=== PATIENT | female | born 1995 | race American Indian/Alaskan Native ===

== ENCOUNTER 2016-11-02 18:32 | Emergency (ER) | payer OTHER ==
--- NOTE | 2016-11-02 21:30 | XRay Report ---
FINAL REPORT EXAM: XR FOOT 3 RT HISTORY: right foot injury . Pain. COMPARISON: None available. FINDINGS: Three views of right foot obtained. There is an oblique nondisplaced fracture through the body of the 3rd metatarsal bone. Remaining bony structures are intact. Joint spaces are preserved. IMPRESSION: Oblique nondisplaced fracture extending through the 3rd metatarsal body. Posttraumatic injury.
--- NOTE | 2016-11-02 22:03 | Emergency Department Report ---
HPI - General Chief Complaint: Extremity Injury, Lower Time Seen by Provider: 11/02/16 21:59 - HPI HPI: 21-year-old -Citizen Of [place] female comes in from work after a heavy ice tea container which is more than 10 gallons of tea fell onto her right foot. She complains of pain and swelling at the top of her foot. She reports that it painful to walk . Patient reports no past medical history. Currently takes no medication. Last known menstrual period was 10/08/2016. ED Past Medical Hx - Past Medical History Previous Medical History?: No - Surgical History Past Surgical History?: No - Social History Smoking Status: Current Every Day Smoker Substance Use Type: Alcohol, Marijuana - Medications Home Medications: Home Medications Medication Instructions Recorded Confirmed Last Taken Type Acetaminophen/Codeine [Tylenol #3] 1 tab PO Q4HR PRN #20 tablet 11/02/16 Unknown Rx ED Review of Systems ROS: Stated complaint: RT FOOT INJURY Other details as noted in HPI Constitutional: denies: chills, fever Musculoskeletal: joint swelling, arthralgia, other (right foot pain) Physical Exam - Physical Exam Vital Signs: Vital Signs 11/02/16 18:47 Temperature 98.2 F Pulse Rate 82 Respiratory 18 Rate Blood Pressure 112/90 O2 Sat by Pulse 100 Oximetry Physical Exam: GENERAL: Alert and oriented x3, no apparent distress, Normal Gait, atraumatic. HEAD: Head is normocephalic and a-traumatic. EXTREMITIES/MUSCULOSKELETAL: No cyanosis, clubbing, rash, lesions or edema. Full ROM bilaterally. UE/LE Pulses 2+ bilaterally. LE and UE 5+ strength bilaterally right foot: Bruising noted on dorsal aspect, tender to palpate dorsal aspect, dorsiflex painful extension painful, movement of toes painful, noted bruising on the top of the foot. NEUROLOGIC: No focal Deficit, Cranial nerves II through XII are grossly intact. No loss of sensation, No facial droop, PSYCHIATRIC: Mood is congruent with affect, SKIN: Warm and dry, No lesions, No ulceration or induration present ED Course Vital Signs 11/02/16 18:47 Temperature 98.2 F Pulse Rate 82 Respiratory 18 Rate Blood Pressure 112/90 O2 Sat by Pulse 100 Oximetry ED Medical Decision Making - Radiology Data Radiology results: report reviewed, image reviewed FINDINGS: Three views of right foot obtained. There is an oblique nondisplaced fracture through the body of the 3rd metatarsal bone. Remaining bony structures are intact. Joint spaces are preserved. IMPRESSION: Oblique nondisplaced fracture extending through the 3rd metatarsal body. Posttraumatic injury. Transcribed By: LMA Dictated By: VALERY LADD MD Electronically Authenticated By: VALERY LADD MD Signed Date/Time: 11/02/162121 - Medical Decision Making Patient's been evaluated by this provider in fast track.. Given pain medication of [place]. Post-op surgical boot ordered crutch training order. Referral to orthopedices. Critical care attestation.: If time is entered above; I have spent that time in minutes in the direct care of this critically ill patient, excluding procedure time. ED Disposition Clinical Impression: Foot fracture, right Qualifiers: Encounter type: initial encounter Clinical Impression: (Ruled Out): Metatarsal boss of right foot Disposition: DISCHARGED TO HOME OR SELFCARE Is pt being admited?: No Does the pt Need Aspirin: No Condition: Stable Instructions: Foot Fracture in Adults (ED) Additional Instructions: Please take her pain medication as prescribed. Very important for you to follow up with the orthopedic for continuing treatment. Prescriptions: Acetaminophen/Codeine [Tylenol #3] 1 tab PO Q4HR PRN #20 tablet PRN Reason: Pain Referrals: PRIMARY CARE, [Primary Care Provider] - 3-5 Days DONG THORNTON MD [Staff Physician] - 3-5 Days [facility] [Provider Group] - 3-5 Days Forms: Work/School Release Form(ED)
[2016-11-02] MEDS ORDERED: NORCO 5/325 PO ONE (22:06)
[2016-11-02 23:05] VITALS: BP 105/75
== END 2016-11-02 23:05 | disposition home or self-care (01) ==
LOC: ED 18:32
DX: S92.331A Displaced fracture of third metatarsal bone, right foot, initial encounter for closed fracture (principal); F17.200 Nicotine dependence, unspecified, uncomplicated; F12.10 Cannabis abuse, uncomplicated; W20.8XXA Other cause of strike by thrown, projected or falling object, initial encounter; Y93.9 Activity, unspecified; Y92.9 Unspecified place or not applicable; Y99.9 Unspecified external cause status
CPT/HCPCS: 99284

== ENCOUNTER 2017-08-26 09:22 | Emergency (ER) | payer SELFPAY ==
[2017-08-26 10:28] VITALS: BP 113/68
[2017-08-26 10:58] LABS: Basophils % (Auto) 0.7 % (0.0-1.8); Eosinophils # (Auto) 0.1 K/mm3 (0.0-0.4); Eosinophils % (Auto) 2.2 % (0.0-4.3); Hematocrit 45.5 % (30.3-42.9); Hemoglobin 15.8 gm/dl (10.1-14.3); Lymphocytes # (Auto) 1.3 K/mm3 (1.2-5.4); Lymphocytes % (Auto) 21.8 % (13.4-35.0); Mean Corpuscular HGB Conc 35 % (30-34); Mean Corpuscular Hemoglobin 30 pg (28-32); Mean Corpuscular Volume 85 fl (79-97); Monocytes # (Auto) 0.4 K/mm3 (0.0-0.8); Monocytes % (Auto) 6.3 % (0.0-7.3); Platelet Count 327 K/mm3 (140-440); Red Blood Count 5.36 M/mm3 (3.65-5.03); Red Cell Distribution Width 13.2 % (13.2-15.2)
[2017-08-26 11:19] LABS: Alanine Aminotransferase 7 units/L (7-56); Albumin 4.9 g/dL (3.9-5); BUN/Creatinine Ratio 11; Blood Urea Nitrogen 8 mg/dL (7-17); Calcium 9.3 mg/dL (8.4-10.2); Hemolysis Index 10
[2017-08-26 11:27] LABS: Bacteria,Urine 1+ /HPF (Negative); Bilirubin,Urine NEG (Negative); Blood,Urine MOD (Negative); Color,Urine Yellow (Yellow); Mucus,Urine 2+ /HPF; Nitrite,Urine NEG (Negative)
== END 2017-08-26 15:56 | disposition left against medical advice (07) ==
LOC: ED 09:22
DX: R11.0 Nausea (principal); Z53.21 Procedure and treatment not carried out due to patient leaving prior to being seen by health care provider
CPT/HCPCS: 36415; 80053; 81001; 84703; 85025